=== PATIENT | female | born 1960 | race Caucasian/White ===

== ENCOUNTER 2016-12-05 13:03 | Emergency (ER) | payer OTHER ==
[~2016-12-05] VITALS: Ht 154.9 cm; Wt 63.5 kg
[~2016-12-05 13:03] MED LIST: AUGMENTIN 875 M1 TAB PO; NORVIR PO; REYATAZ300 MG PO; TRUVADA 200 MG1 EACH PO; ULTRACET 325 MG1 TAB PO
--- NOTE | 2016-12-05 13:40 | ED AMS/SEIZURE/WEAK/DIZZY ---
History of Present Illness General Chief Complaint: General Adult Stated Complaint: DIZZY, RT SIDED WILL, ELEVATED BP Source: patient, old records Exam Limitations: no limitations Vital Signs & Intake/Output Vital Signs & Intake/Output Vital Signs Date Time Temp Pulse Resp B/P B/P Pulse O2 O2 Flow FiO2 Mean Ox Delivery Rate 12/05 1516 97.5 84 16 129/75 97 Room Air 12/05 1310 97.2 74 20 132/80 96 Room Air Allergies Coded Allergies: diphenhydramine (From BENADRYL) (HEART RACES 12/05/16) Reconcile Medications Atazanavir Sulfate (Reyataz) 300 MG CAPSULE 1 CAP PO DAILY HIV (Reported) with food Emtricitabine/Tenofovir (Truvada 200 MG-300 MG Tablet) 200 MG-300 MG TABLET 1 TAB PO DAILY HIV (Reported) Ritonavir (Norvir) 100 MG TABLET 1 TAB PO DAILY HIV (Reported) Zolpidem Tartrate 10 MG TABLET 1 TAB PO QPM SLEEP (Reported) Triage Note: PT PRESENTS TO ER C/O OF FEELING DIZZY AT WORK. 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 PT STATES SHE ALSO DEVELOPED A RIGHT SIDED HEADACHE. PT STATES SHE WAS HYPERTENSIVE AT WORK. ON ARRIVAL AT TRIAGE BP IS 138/82. PT STATES DIZZINESS HAS SUBSIDED AT THIS TIME BUT HEADACHE REMAINS Triage Nurses Notes Reviewed? 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 She states that she woke up feeling okay this morning at breakfast went to work. She denies history of similar symptoms in the past. She sat down and had a coworker check her blood pressure which he told her was high. She went outside have a cigarette was feeling better however had another episode and began to have left-sided headache. She states all the symptoms have since resolved. She denies any associated nausea vomiting vision changes. No recent fall or head trauma no chest pain dizziness or palpitations shortness of breath abdominal pain. Patient is without any complaints at this time. She states the coworker checked her blood sugar at work was 170 (VALENTIN LOZANO) Past History Travel History Traveled to [place] past 21 day No Medical History Any Pertinent Medical History? see below for history Other Medical Hx: HIV Surgical History Surgical History: non-contributory Psychosocial History What is your primary language Sami Tobacco Use: Never used Family History Hx Contributory? No (VALENTIN LOZANO) Review of Systems Review of Systems Constitutional: Reports: see HPI. All Other Systems: Reviewed and Negative Comments Review of systems: See HPI, All other systems negative. Constitutional, no chills no fever, no malaise HEENT: No visual changes no sore throat no congestion, Cardiovascular: No chest pain , no palpitation Skin: no rashes, no change in skin Respiratory: No dyspnea no cough no sputum no hemoptysis GI: No nausea no vomiting, no diarrhea, : No dysuria No hematuria, Muscle skeletal: No joint pain,no back pain, no neck pain, Neurologic: No numbness, no headache Psych: No stress no depression,. Heme/endocrine: No bruising no bleeding Immunology: No lymphadenopathy (VALENTIN LOZANO) Physical Exam Physical Exam General Appearance: well developed/nourished, alert, awake Comments: Well-developed well-nourished person in no acute distress HEENT: Normal EENT exam; PERRL, EOMI, no nystagmus. HEAD is atraumatic. moist mucous membranes. Neck: Supple, no lymphadenopathy, normal range of motion no bruit Back: Nontender, no CVA tenderness. Full range of motion Cardiovascular: Regular rate and rhythms no murmurs rubs Respiratory: Chest nontender.There were no bony deformities, no asymmetry. No respiratory distress. Patient speaking in full complete sentences. Breath sounds clear to auscultation bilaterally: NO W/R/R Abdomen: Soft, nontender nondistended Extremity: No edema, full range of motion of extremities, normal and equal pulses bilaterally, 5 out of 5 strength noted to bilateral upper and lower extremities Neuro: Alert oriented x3, motor sensory normal, cranial nerves II through XII grossly intact. There were no obvious focal neurologic abnormalities. Skin: No appreciable rash on exposed skin, skin is warm and dry. Psych: Mood and affect is normal, memory and judgment is normal. Core Measures ACS in differential dx? No CVA/TIA Diagnosis: No Severe Sepsis Present: No Septic Shock Present: No (VALENTIN LOZANO) Progress Differential Diagnosis: arrythmia, anemia, benign positional vertigo, CVA/stroke , dehydration, electrolyte imbalance, intracranial mass/tumor, subarachnoid Hem. , vertebrobasilar insuff Plan of Care: Orders Procedure Date/time Status MISTAKE 12/05 1349 Active Telemetry/Renewals Manager 12/05 1349 Active TROPONIN LEVEL 12/05 1349 Complete COMPREHENSIVE METABOLIC PANEL 12/05 1349 Complete CBC WITHOUT DIFFERENTIAL 12/05 134 Complete EKG 12/05 1311 Active Laboratory Tests 12/05/16 1356: Anion Gap 9, Estimated GFR > 60, BUN/Creatinine Ratio 18.6, Glucose 98, Calcium 9.3, Total Bilirubin 1.8 H, AST 23, ALT 27, Alkaline Phosphatase 158 H, Troponin I < 0.01, Total Protein 7.1, Albumin 3.9, Globulin 3.2, Albumin/ Globulin Ratio 1.2, CBC w Diff NO MAN DIFF REQ, RBC 4.31, MCV 93.9, MCH 31.2 H, RDW 14.2, MPV 7.0 L, Gran % 47.1, Lymphocytes % 43.1, Monocytes % 7.3, Eosinophils % 1.8, Basophils % 0.7, Absolute Granulocytes 3.6, Absolute Lymphocytes 3.3, Absolute Monocytes 0.6, Absolute Eosinophils 0.1, Absolute Basophils 0, PUBS MCHC 33.2 Labs ordered patient denies any complaints at this time CAT scan ordered. Case discussed with Dr. pandya. Orthostatics negative 12/05/2016 2:58:05 PMOn repeat evaluation patient resting in no apparent distress again denies any complaints, she is ambulatory around the emergency room here with steady gait I discussed with the patient at length all of their results. I had an extensive conversation regarding need for close follow up with their primary care physician this week as well as return precautions. I answered all of their questions, they feel comfortable with the plan and follow-up care. I discussed the medications that they will receive with the patient. I gave them signs and symptoms that could indicate an adverse reaction. I have advised them to limit their activities until they can see how they respond to the medication. (VALENTIN LOZANO) Diagnostic Imaging: Viewed by Me: CT Scan. Discussed w/RAD: CT Scan. Radiology Impression: PATIENT: KAMILAH CRAIN PRESENT AGE: 56 PATIENT ACCOUNT NO: [id number] : 60 LOCATION: [facility] ORDERING PHYSICIAN: VALENTIN GOSS SERVICE DATE: 12/05/16 EXAM TYPE: CAT - CT HEAD WO IV CONTRAST EXAMINATION: CT HEAD WITHOUT CONTRAST CLINICAL INFORMATION: Dizziness, headache COMPARISON: None TECHNIQUE: Contiguous axial imaging was performed from the skull base to vertex without intravenous administration of contrast. Findings: No midline shift. There is no mass effect. No hemorrhage. Basal cisterns appear patent. Posterior fossa is grossly within normal limits. No extra-axial collection. Vascular calcifications are noted. IMPRESSION: Negative acute noncontrast CT of the brain. DICTATED BY: JOVITA RAMOS MD DATE/TIME DICTATED:12/05/161443 MOTOR SETTER:PEDRO DATE/TIME TRANSCRIBED:12/05/161443 CONFIDENTIAL, DO NOT COPY WITHOUT APPROPRIATE AUTHORIZATION. <Electronically signed in Other Vendor System> SIGNED BY: JOVITA RAMOS MD 12/05/16 1451 Initial ED EKG: NORMAL SINUS AT 80, NO ACUTE st SEGMENT CHANGES NORMAL AXIS Rhythm Strip: normal sinus rhythm (VALENTIN LOZANO) Departure Departure Time of Disposition: 1457 Disposition: HOME OR SELF CARE Condition: Stable Clinical Impression Primary Impression: Lightheadedness Referrals: SHARIF BARNES MD (PCP/Family) Departure Forms: Customer Survey General Discharge Information (VALENTIN LOZANO) PA/CERTIFIED MEDICAL ASST Co-Sign Statement Statement: ED Attending supervision documentation- [] I saw and evaluated the patient. I have also reviewed all the pertinent lab results and diagnostic results. I agree with the findings and the plan of care as documented in the PA's/CERTIFIED MEDICAL ASST's documentation. [X] I have reviewed the ED Record and agree with the PA's/CERTIFIED MEDICAL ASST's documentation. [] Additions or exceptions (if any) to the PAs/CERTIFIED MEDICAL ASST's note and plan are summarized below: [] (CASSIE HERNANDEZ,JAKE)
[2016-12-05] MEDS ORDERED: ZOLPIDEM TARTRA10 M1 PO (14:12)
[2016-12-05 14:13] LABS: ABSOLUTE BASOPHIL COUNT 0 /CUMM (0.0-0.2); ABSOLUTE EOSINOPHIL COUNT 0.1 /CUMM (0.0-0.7); ABSOLUTE GRANULOCYTE CT 3.6 /CUMM (1.4-6.5); ABSOLUTE LYMPH COUNT 3.3 /CUMM (1.2-3.4); ABSOLUTE MONOCYTE COUNT 0.6 /CUMM (0.10-0.60); BASOPHIL % 0.7 % (0.0-2.0); EOSINOPHIL % 1.8 % (0-5); GRANULOCYTE % 47.1 % (42.2-75.2); HEMATOCRIT 40.5 % (37-47); MEAN CORPUSCULAR HGB 31.2 PG (27.0-31.0); MEAN CORPUSCULAR HGB CONC 33.2 G/DL (33.0-37.0); MEAN CORPUSCULAR VOLUME 93.9 FL (81.0-99.0); RBC DISTRIBUTION WIDTH 14.2 % (11.5-14.5); RED BLOOD CELL CT 4.31 /CUMM (4.20-5.40); WHITE BLOOD CELL COUNT 7.6 /CUMM (4.8-10.8)
[2016-12-05 14:40] LABS: PLATELET COUNT 268 /CUMM (130-400)
--- NOTE | 2016-12-05 14:51 | CT SCAN REPORT ---
EXAMINATION: CT HEAD WITHOUT CONTRAST CLINICAL INFORMATION: Dizziness, headache COMPARISON: None TECHNIQUE: Contiguous axial imaging was performed from the skull base to vertex without intravenous administration of contrast. Findings: No midline shift. There is no mass effect. No hemorrhage. Basal cisterns appear patent. Posterior fossa is grossly within normal limits. No extra-axial collection. Vascular calcifications are noted. IMPRESSION: Negative acute noncontrast CT of the brain.
[2016-12-05 15:16] VITALS: BP 129/75
== END 2016-12-05 15:18 ==
LOC: ERH 13:03
PROVIDERS: Physician Assistant Medical
DX: R42 Dizziness and giddiness (principal)
CPT/HCPCS: 93005; 93010